=== PATIENT | male | born 1950 ===

== ENCOUNTER 2024-08-24 11:25 | Outpatient (CLI) | payer OTHER, SELFPAY | END 2024-08-24 11:26 | disposition home or self-care (01) | PROVIDERS: Visit Provider Family Medicine | DX: R05.3 Chronic cough (principal) | CPT/HCPCS: 94010; 94726; 94729 ==

== ENCOUNTER 2024-08-26 08:38 | Outpatient (CLI) | payer OTHER, SELFPAY ==
--- NOTE | 2024-08-26 08:43 | MR_ITS ---
WS: [id number] MRI BRAIN WITH AND WITHOUT CONTRAST HISTORY: DEMENTIA COMPARISON: None available. TECHNIQUE: Multiplanar imaging performed through the brain with MultiHance 16 ml's IV. No acute infarcts are seen. Franco-white matter differentiation is well preserved. Mild atrophy and mild small vessel ischemic changes in the supratentorial white matter. Slightly greater small vessel disease on the RIGHT. No large territory infarct. No hemorrhage. No susceptibility artifacts or prior lacunar infarcts. Ventricles and extra-axial spaces are normal. Clivus and pituitary gland are normal. Mild cerebellar atrophy. Postcontrast images are negative for masses or vascular malformations. Dural venous sinuses are normal. Paranasal sinuses: Well aerated with no significant disease. Mastoid air cells: Normal. Calvarium and scalp: Normal. MR/MR head wo/w con [id number] IMPRESSION: 1. No acute infarct, hemorrhage or mass. 2. Mild symmetric cerebral atrophy and cerebellar atrophy. 3. Mild small vessel changes, greater on the RIGHT.
[2024-08-26] MEDS: gadobenate dimeglumine 20 mL vial 16 ML IV (09:46)
== END 2024-08-26 08:39 | disposition home or self-care (01) ==
LOC: RAD 08:39
PROVIDERS: Visit Provider Family Medicine
DX: F03.90 Unspecified dementia, unspecified severity, without behavioral disturbance, psychotic disturbance, mood disturbance, and anxiety (principal)
CPT/HCPCS: 70553; A9577